=== PATIENT | male | born 1970 | race Caucasian/White ===

== ENCOUNTER 2016-11-23 17:20 | Emergency (ER) | payer OTHER ==
[~2016-11-23] VITALS: Ht 188 cm; Wt 81.7 kg
[~2016-11-23 17:20] MED LIST: IBUPROFEN 600600 M1 PO; KEPPRA 500 MG500 M1 PO; LAMICTAL200 MG PO
[2016-11-23 19:20] VITALS: BP 130/82
== END 2016-11-23 19:21 | disposition home or self-care (01) ==
LOC: ER 17:20
DX: G40.901 Epilepsy, unspecified, not intractable, with status epilepticus (principal); F17.210 Nicotine dependence, cigarettes, uncomplicated

== ENCOUNTER 2017-04-21 15:37 | Emergency (ER) | payer OTHER ==
[~2017-04-21] VITALS: Ht 188 cm; Wt 77.1 kg
[2017-04-21] MEDS ORDERED: LAMICTAL100 MG PO (15:53)
[2017-04-21] MEDS ORDERED: KEPPRA 500 MG500 M1 PO (15:53)
[2017-04-21 16:02] LABS: BASOPHILS 0.4 % (0.0-2.0); EOSINOPHILS 3.7 % (0.0-3.0); HEMATOCRIT 44.7 % (42.0-52.0); HEMOGLOBIN 15.3 gm/dL (14.0-18.0); MCH 30.1 pg (26.0-34.0); MCHC 34.2 g/dL (28.0-37.0); MONOCYTES 7.5 % (1.0-8.0); PLATELET COUNT 308 thou/uL (150-400); POLYS 58.4 % (36.0-66.0); RBC 5.08 mil/uL (4.50-6.00); RDW 12.7 % (10.5-14.5); WBC 6.8 thou/uL (4.0-11.0)
[2017-04-21 16:06] LABS: CREATININE 1.2 mg/dL (0.7-1.3); MANUAL DIFF NO; POTASSIUM 3.8 mmol/L (3.5-5.1)
[2017-04-21] MEDS ORDERED: LAMICTAL XR200 MG PO (17:32)
[2017-04-21] MEDS ORDERED: KEPPRA750 MG PO (17:32)
[2017-04-21 17:37] VITALS: BP 98/58
== END 2017-04-21 17:38 | disposition home or self-care (01) ==
LOC: ER 15:37
PROVIDERS: Physician Assistant
DX: G40.89 Other seizures (principal); M54.6 Pain in thoracic spine

== ENCOUNTER 2018-09-05 17:37 | Emergency (ER) | payer OTHER ==
[~2018-09-05] VITALS: Ht 188 cm; Wt 83.9 kg
[~2018-09-05 17:37] MED LIST changes: +KEPPRA XR500 MG PO; +KEPPRA750 MG PO; +LAMICTAL XR200 MG PO; +LAMICTAL100 MG PO
[2018-09-05 17:50] LABS: ABSOLUTE NEUTROPHILS 3.5 thou/uL (1.4-8.2); BASOPHILS 0.7 % (0.0-2.0); EOSINOPHILS 3.9 % (0.0-3.0); HEMOGLOBIN 15.7 gm/dL (14.0-18.0); LYMPHOCYTES 32.9 % (24.0-44.0); MCH 29.7 pg (26.0-34.0); MCHC 34.2 g/dL (28.0-37.0); MCV 87.1 fL (80.0-100.0); MONOCYTES 8.7 % (1.0-8.0); PLATELET COUNT 292 thou/uL (150-400); POLYS 53.8 % (36.0-66.0); RBC 5.28 mil/uL (4.50-6.00); RDW 13.1 % (10.5-14.5); WBC 6.6 thou/uL (4.0-11.0)
[2018-09-05 18:07] LABS: CALCIUM 9.3 mg/dL (8.5-10.1); CREATININE 1.2 mg/dL (0.7-1.3)
[2018-09-05 18:09] LABS: POTASSIUM 4.5 mmol/L (3.5-5.1)
[2018-09-05 18:13] LABS: ALBUMIN 3.8 g/dL (3.4-5.0); TOTAL BILIRUBIN 0.3 mg/dL (<0.1-1.0); TOTAL PROTEIN 7.3 g/dL (6.4-8.2)
[2018-09-05] MEDS ORDERED: MOBIC7.5 MG PO (20:07)
[2018-09-05 20:13] LABS: URINE CLARITY CLEAR; URINE COLOR YELLOW
[2018-09-05 20:14] LABS: URINE BILIRUBIN NEGATIVE (Negative); URINE BLOOD NEGATIVE (Negative); URINE GLUCOSE-RANDOM* NEGATIVE (Negative); URINE KETONES NEGATIVE (Negative); URINE LEUKOCYTES-REFLEX NEGATIVE (Negative); URINE NITRITE-REFLEX NEGATIVE (Negative); URINE PROTEIN (DIPSTICK) NEGATIVE (Negative); URINE SPECIFIC GRAVITY 1.015 (1.005-1.035); URINE UROBILINOGEN 0.2 E.U./dl (0.2-1.0)
[2018-09-05 20:50] VITALS: BP 120/78
== END 2018-09-05 20:50 | disposition home or self-care (01) ==
LOC: ER 17:37
PROVIDERS: Nurse Practitioner Family
DX: M25.551 Pain in right hip (principal); R07.89 Other chest pain; R56.9 Unspecified convulsions